=== PATIENT | male | born 1950 | race Caucasian/White ===

== ENCOUNTER 2016-08-02 20:04 | Emergency (ER) | payer MEDICARE, MEDICAID ==
[2016-08-02 20:28] VITALS: BP 181/87
--- NOTE | 2016-08-02 21:11 | EDM.PDOC ---
ED HPI Skin/Rash - General Chief Complaint: Wound Recheck Stated Complaint: POSS MRSA LEFT KNEE Time Seen by Provider: 08/02/16 20:29 Source: Reports: Patient History Limitations: Reports: No limitations - History of Present Illness INITIAL COMMENTS - FREE TEXT/NARRATIVE: This is a 66-year-old male. He has a below the knee amputation on the left. He does have a prosthesis with a cup that fits around that lower leg. He noted several days ago that he was developing a pressure sore over the proximal fibula skin area. Is to continue to develop and now it is having some skin breakdown and foul smelling and some discharge noted. He has a history of MRSA in the past and is concerned that maybe that was going on now. He does try to keep the cup washed and cleaned as well as cleanse the wound and frequently. He denies any fever or chills he denies any other acute symptoms. - Related Data Allergies Allergy/AdvReac Type Severity Reaction Status Date / Time No Known Allergies Allergy Verified 08/02/16 20:18 Home Meds: Ambulatory Orders Medication Instructions Recorded Confirmed Doxycycline [Vibramycin] 100 mg PO BID #20 tablet 08/02/16 Past Medical History Cardiovascular History: Reports: Bypass, [place], Other (see below) Other Cardiovascular History: heart attack in 2002 Gastrointestinal History: Reports: Other (see below) Other Gastrointestinal History: pancreatitis Endocrine/Metabolic History: Reports: Diabetes, type II, Other (see below) Other Endocrine/Metabolic History: pt states that he has his diabetes controlled with diet and exercise - Past Surgical History Cardiovascular Surgical History: Reports: Coronary artery bypass, Other (see below) Other Cardiovascular Surgeries/Procedures: double bypass Musculoskeletal Surgical History: Reports: Amputation, Other (see below) Other Musculoskeletal Surgeries/Procedures:: L leg BTK amputation Social & Family History - Tobacco Use Smoking Status *Q: Never Smoker Second Hand Smoke Exposure: No - Caffeine Use Caffeine Use: Reports: None - Alcohol Use Days Per Week of Alcohol Use: 0 - Recreational Drug Use Recreational Drug Use: No ED ROS GENERAL - Review of Systems Review Of Systems: See Below Constitutional: Denies: fever, chills HEENT: Reports: No symptoms Respiratory: Reports: No Symptoms Cardiovascular: Reports: No symptoms Endocrine: Reports: other (Diabetic) GI/Abdominal: Reports: No symptoms : Reports: no symptoms Musculoskeletal: Reports: other (As per history of present illness) Skin: Reports: other (As per history of present illness) Neurological: Reports: No Symptoms Psychiatric: Reports: No symptoms Hematologic/Lymphatic: Reports: no symptoms ED EXAM, SKIN/RASH Exam: See Below Exam Limited By: No limitations General Appearance: alert, WD/WN, no apparent distress Ears: normal external exam Nose: normal inspection Throat/Mouth: Normal lips, Normal voice Head: normocephalic Neck: supple Extremities: other (The left lower extremity he has a below the knee amputation noted, the stump looks very clean and is no skin breakdown, however over the proximal fibula bone it somewhat prominent and he is developing a pressure sore that is now infected and foul smelling. There is no surrounding erythema there is no red streaks up his leg.) Neurological: alert, oriented Psychiatric: normal affect, normal mood Skin: Warm, Dry Course - Vital Signs Last Recorded V/S: Last Vital Signs Temp 98.0 F 08/02/16 20:18 Pulse 73 08/02/16 20:18 Resp 16 08/02/16 20:18 BP 181/87 H 08/02/16 20:18 Pulse Ox 95 08/02/16 20:18 - Orders/Labs/Meds Orders: Active Orders 24 hr Category Date Time Status CULTURE WOUND [RM] Stat Lab 08/02/16 20:55 Uncollected - Re-Assessments/Exams Free Text/Narrative Re-Assessment/Exam: 08/02/16 21:10 We will do a wound culture of the infected skin. In the meantime we'll place him on some doxycycline because we are presuming that this is going to be MRSA again since he has a history of MRSA with the same type and place infection in the past Departure - Departure Time of Disposition: 21:10 Disposition: Home, Self-Care 01 Condition: good Clinical Impression: Skin infection, Ulcer of left lower extremity, limited to breakdown of skin Prescriptions: Doxycycline [Vibramycin] 100 mg PO BID #20 tablet Forms: ED Department Discharge Additional Instructions: Keep the wound area covered to try to prevent spread of infection, cleanse the wound with soap and water 2-3 times a day, make sure the top for the prosthesis stays well cleaned from the discharge of the wound, take your antibiotics faithfully until they're finished, once we get the wound cultures back we will notify you of the results to make certain you're on the correct antibiotics to kill the infection, followup with your doctor end of this week for recheck or return to the ER if the infection begins to spread you develop a fever greater than 101.5 - My Orders Last 24 Hours: My Active Orders 08/02/16 20:55 CULTURE WOUND [RM] Stat - Assessment/Plan Last 24 Hours: My Active Orders 08/02/16 20:55 CULTURE WOUND [RM] Stat
== END 2016-08-02 21:25 | disposition home or self-care (01) ==
LOC: JD.ED 20:04
DX: L97.821 Non-pressure chronic ulcer of other part of left lower leg limited to breakdown of skin (principal); E11.9 Type 2 diabetes mellitus without complications; Z95.1 Presence of aortocoronary bypass graft
CPT/HCPCS: 87070; 87077; 87186; 99283